=== PATIENT | female | born 1995 | race Two or more races ===

== ENCOUNTER 2020-08-05 01:04 | Emergency (ER) | payer OTHER ==
[~2020-08-05] VITALS: Ht 160 cm; Wt 63.5 kg
--- NOTE | 2020-08-05 01:19 | NUR ---
pt came into ed this evening after exposure to material at work caused an allergic reaction. pt states this happened around 2100, front left portion of neck has silver dollar sized rash with erythema. no mouth or facial involvement noted. resp wnl. 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 pt SO at bs. bed in [facility], rails engaged, call light on lap. wctm. awaiting erp eval
[2020-08-05] MEDS ORDERED: FAMOTIDINE 20 MG TABLET PO ONE (01:30)
[2020-08-05] MEDS ORDERED: DIPHENHYDRAMINE 25 MG CAPSULE PO ONE (01:30)
[2020-08-05] MEDS ORDERED: FAMOTIDINE 20 MG TABLET ONE (01:35)
[2020-08-05] MEDS ORDERED: DIPHENHYDRAMINE 25 MG CAPSULE ONE (01:35)
[2020-08-05 02:16] VITALS: BP 118/71
--- NOTE | 2020-08-05 02:17 | NUR ---
Patient given discharge instructions and they have confirmed that they understand the instructions. Patient ambulatory with steady gait. NAD, DENIES ADDITIONAL QUESTIONS OR NEEDS, NO BELONGINGS LEFT IN ROOM AFTER DC.
== END 2020-08-05 02:18 | disposition home or self-care (01) ==
LOC: ED 02:04
DX: T78.49XA Other allergy, initial encounter (principal); R21 Rash and other nonspecific skin eruption; X58.XXXA Exposure to other specified factors, initial encounter
CPT/HCPCS: 99284; J7512; Q0163